=== PATIENT | male | born 1975 | race Two or more races ===

== ENCOUNTER → 2016-07-31 | Day surgery (SDC) | payer BC ==
[~2016-07-31] VITALS: Ht 170.2 cm; Wt 79.4 kg
[2016-07-31] VITALS (8 sets, daily range): BP systolic 116–148; BP diastolic 79–96
[~2016-07-31] MED LIST: INDERAL LA60 MG ORAL; LOSARTAN POTASS50 MG ORAL; LR 1000ml ONE; Lidocaine 1% MPF 10mg/ml 5ml ONE; Propofol 10mg/ml 20ml IV ONE
--- NOTE | 2016-07-31 07:04 | Anethesia Preoperative Eval ---
Anesthesia Pre-op PMH/ROS General Date of Evaluation: Jul 31, 2016 Time of Evaluation: 07:02 Anesthesiologist: [email or web address] ASA Score: ASA 2 Mallampati Score Class I : Soft palate, uvula, fauces, pillars visible Class II: Soft palate, uvula, fauces visible Class III: Soft palate, base of uvula visible Class IV: Only hard plate visible Mallampati Classification: Class II Surgeon: gurpreet Diagnosis: melena Surgical Procedure: EGD/Colonoscopy Anesthesia History: none Family History: no anesthesia problems Medications: see eMAR Past Medical History Cardiovascular: Reports: HTN Pulmonary: Denies: COPD, ANNETTA, asthma, other Gastrointestinal/Genitourinary: Reports: GERD Neurologic/Psychiatric: Denies: CVA, TIA, dementia, depression/anxiety, other Endocrine: Denies: DM, hypothyroidism, other, steroids Hematology/Immune: Denies: DVT, anemia, bleeding disorder, other Musculoskeletal/Integumentary: Denies: DDD, DJD, OA, RA, edema, other PSxH Narrative: none Anesthesia Pre-op Phys. Exam Physician Exam Last Vital Signs Date Time Temp Pulse Resp B/P Pulse Ox O2 Delivery O2 Flow Rate FiO2 07/31/16 06:46 98.5 72 18 116/85 98 Room Air Constitutional: NAD Neurologic: CN 2-12 intact Cardiovascular: RRR Respiratory: CTA Gastrointestinal: S/NT/ND Airway Exam Mallampati Classification 2 Mallampati Score: Class II MO: full ROM: full Dentures: no lower, no upper Anesthesia Pre-op A/P Studies Pre-op Studies: EKG - sr Risk Assessment & Plan Plan: mac Status Change Before Surgery: No Pre-Antibiotics Drug: none MIGNON PAIZ CRNA Jul 31, 2016 07:04
--- NOTE | 2016-07-31 07:15 | Short Stay Surgery H&P ---
History of Present Illness History of Present Illness Chief Complaint see typed H&P HPI Rianna Guallpa is a 41 year old male who was admitted on for Melena Patient History Allergies: Coded Allergies: No Known Allergies (Unverified , 07/31/16) PAST MEDICAL HISTORY: Past Surgeries: Social History: Medication History Scheduled Losartan Potassium* (Losartan Potassium*), 100 MG ORAL DAILY, (Reported) Propranolol Hcl* (Inderal La*), 60 MG ORAL DAILY, (Reported) Physical Exam Vital Signs Last Vital Signs Date Time Temp Pulse Resp B/P Pulse Ox O2 Delivery O2 Flow Rate FiO2 07/31/16 06:46 98.5 72 18 116/85 98 Room Air Plan Attestation Are the patient's medical conditions optimized for surgery? SABRINA PEREZ Jul 31, 2016 07:15
--- NOTE | 2016-07-31 07:15 | Pre-Procedure Note/Attestation ---
Pre-Procedure Note/Attestation Complete Prior to Procedure Planned Procedure: not applicable Procedure Narrative: EGD/Colon Indications for Procedure Pre-Operative Diagnosis: GERD, BRBPR Attestation I attest that I discussed the nature of the procedure; its benefits; risks and complications; and alternatives (and the risks and benefits of such alternatives ), prior to the procedure, with the patient (or the patient's legal branch service representative). I attest that, if there was a reasonable possibility of needing a blood transfusion, the patient (or the patient's legal branch service representative) was given the [facility] standardized written summary, pursuant to the Nikko Grawn Blood Safety Act ([place] Health and Safety Code # 1645, as amended). I attest that I re-evaluated the patient just prior to the surgery and that there has been no change in the patient's H&P, except as documented below: SABRINA PEREZ Jul 31, 2016 07:15
--- NOTE | 2016-07-31 07:49 | Endoscopy Procedure Note ---
Endoscopy Procedure Note Indication for Procedure: er, brb Procedures Performed: EGD, colonoscopy Operative Findings/Diagnosis: mild bushra, dim asc and Tv polyp Specimen: yes Pt Tolerated Procedure Well: Yes Estimated Blood Loss: none Anesthesiologist: see report Anesthesia: MAC Medication Given: see anesthesia record Implant(s) used?: No 50 yrs or older w/o bx or poly: Not Applicable 10yrs. F/U not recommended: Not Applicable If not recommended, why?: SABRINA PEREZ Jul 31, 2016 07:49
--- NOTE | 2016-07-31 07:50 | Brief Operative Note ---
Immediate Post Operative Note Operative Note Chief Complaint: JEREMIE, BRB Pre-op Diagnosis: GERD, BRBPR Procedure: E/b, C/b Post-op Diagnosis: min bushra, dim asc and TV polyps SABRINA PEREZ Jul 31, 2016 07:50
--- NOTE | 2016-07-31 07:55 | Immediate Post-Op Evaluation ---
Immediate Post-Op Evalulation Immediate Post-Op Evalulation Procedure: egd/colonoscopy Date of Evaluation: Jul 31, 2016 Time of Evaluation: 07:55 IV Fluids: 500 Blood Pressure Systolic: 129 Blood Pressure Diastolic: 89 Pulse Rate: 85 Respiratory Rate: 14 O2 Sat by Pulse Oximetry: 97 Temperature (Fahrenheit): 98.1 Nausea: No Vomiting: No Complications none Patient Status: awake, reacts, patent Hydration Status: adequate Drug: none COLBYRICHAVOIONMIGNON CRNA Jul 31, 2016 07:55
--- NOTE | 2016-07-31 08:20 | 48 Hour Post Anesthesia Eval ---
Post Anesthesia Evaluation Procedure: egd/colonoscopy Date of Evaluation: Jul 31, 2016 Time of Evaluation: 08:20 Blood Pressure Systolic: 145 0: 96 Pulse Rate: 75 Respiratory Rate: 14 O2 Sat by Pulse Oximetry: 99 Airway: patent Nausea: No Vomiting: No Hydration Status: adequate Mental Status/LOC: patient returned to baseline Post-Anesthesia Complications: none Follow-up care needed: N/A MIGNON PAIZ CRNA Jul 31, 2016 08:20
--- NOTE | 2016-07-31 20:58 | Operative Note - Dictated ---
DATE OF OPERATION: 07/31/2016 DATE OF PROCEDURE: 07/31/2016 PROCEDURE: Upper gastroendoscopy with biopsy as well as colonoscopy with biopsy. SURGEON: Renetta Marinelli M.D. ANESTHESIA: Please see the separate anesthesiologist notes for details. PRE-ENDOSCOPIC DIAGNOSES: 1. Gastroesophageal reflux disease. 2. Hematochezia. POST-ENDOSCOPIC DIAGNOSES: 1. Minimal gastritis. 2. Possible reflux status post lower esophageal biopsies. 3. Status post random biopsies of the antrum. 4. Diminutive polyp in the ascending and transverse colon. 5. Biopsy removed and sent separately. PROCEDURE: The procedure, its risks, indications, alternatives, and possible complications were explained to the patient. Informed consent was obtained. The patient was then sedated in the left lateral decubitus position. A diagnostic upper endoscope was introduced through the oropharynx and advanced to the duodenum. The endoscope was then gradually withdrawn. The mucosa examined carefully. Mild erythematous gastritis and some mild erythema seen in the gastroesophageal junction. Biopsies of the antrum as well as esophagus were sent to pathology for review. The endoscope was removed. Rectal exam was done. The colonoscope was introduced in the rectum and advanced to the cecum without difficulty. The cecum was identified by the appearance of the ileocecal valve. The colonoscope was then gradually withdrawn and the mucosa examined carefully. Examination of colonic mucosa revealed a diminutive polyp in the ascending colon and another one in the transverse colon, which was removed with a biopsy forceps. The remainder of examination including the retroflexion of the rectum was unremarkable. The patient was sent to recovery room in good condition. COMPLICATIONS: None. RECOMMENDATIONS: 1. Followup biopsy results. 2. Reflux precautions. 3. Outpatient followup. Renetta Marinelli M.D. DR: THERON JOB#: [id number] CC:
== END | disposition home or self-care (01) ==
LOC: GAS 06:10
DX: K21.9 Gastro-esophageal reflux disease without esophagitis (principal); K29.50 Unspecified chronic gastritis without bleeding; K92.1 Melena; D12.2 Benign neoplasm of ascending colon; D12.3 Benign neoplasm of transverse colon; K59.00 Constipation, unspecified; I10 Essential (primary) hypertension
CPT/HCPCS: 43239; 45380; J2704; J7120; 94003; 94150